=== PATIENT | male | born 1970 | race Caucasian/White ===

== ENCOUNTER 2020-05-17 09:20 | Emergency (ER) | payer BC, SELFPAY ==
[2020-05-17 09:32] VITALS: BP 129/81; PULSE 70; RESP 16; TEMP 36.7; O2SAT 98
--- NOTE | 2020-05-17 09:46 | ED.URI ---
HPI - URI/Sore Throat General Chief Complaint: Upper Respiratory Infection Stated Complaint: FEVER Time Seen by Provider: 05/17/20 09:35 Source: patient Mode of arrival: ambulatory Limitations: no limitations History of Present Illness HPI Narrative: Bobby Aleman is a 49 yo male with no PMH who comes here with fever and fatigue that started yesterday. He was exposed 2 weeks ago to someone that had Covid and a number of people that were there were positive. He started feeling poorly at work yesterday says he had a fever feeling tired, came here for evaluation and treatment. Patient uses tobacco via vape stopped smoking cigarettes 3-1/2 years ago, uses alcohol regularly Related Data Allergies Allergy/AdvReac Type Severity Reaction Status Date / Time No Known Allergies Allergy Unknown Verified 05/17/20 09:26 Review of Systems Review of Systems: Narrative: CONSTITUTIONAL: Has fever, chills, sweats. Fatigue EYES: Denies visual changes, redness, discharge. ENT: Denies rhinorrhea, congestion, sore throat, otalgia. CARDIOVASCULAR: Denies chest pain, palpitations, edema. RESPIRATORY: Denies dyspnea, wheezing, cough GASTROINTESTINAL: Denies abdominal pain, nausea, vomiting, diarrhea. GENITOURINARY: Denies dysuria, hematuria, abnormal discharge SKIN: Denies rash or itching. NEUROLOGIC: Denies numbness, or focal weakness. PSYCHIATRIC: Denies anxiety or depression. PMFSH Past Medical History Medical History No acute medical problems Family History Family History Other No acute medical problems Social History Social History Smoking status: Current every day smoker Tobacco type: e-cigarettes/vaping Smoking end date: 03/30/16 Additional smoking assessment comments: Stop smoking cigarettes 3/2 years ago but converted directly to vaping Alcohol intake: current Exam Narrative: Exam Narrative: GENERAL: This is a well-nourished, well-developed patient, in mild distress. HEAD: normocephalic, atraumatic. EYES: Sclera clear/white. Vision is grossly intact. EARS: External ears normal, auditory canals clear and without drainage, TMs normal without perforation. Hearing grossly intact. NOSE: External nose normal without nasal discharge, nares without redness, no rhinorrhea. THROAT: Mucous membranes moist, posterior pharynx erythema NECK: Neck supple, non-tender CARDIOVASCULAR: Regular rate and rhythm without murmurs, gallops, or rubs. RESPIRATORY: Clear to auscultation. Breath sounds equal bilaterally. No wheezes, rales, or rhonchi. GASTROINTESTINAL: Abdomen soft, non-tender, SKIN: warm, intact with no suspicious lesions or rash, good texture and turgor. NEURO: awake, alert, and oriented to person, place and time. There were no obvious focal neurologic abnormalities. Steady gait EXTREMITIES: Normal range of motion. BACK: Nontender without deformity Course Course Emergency Course: Patient comes to express care after 2 weeks ago exposure to Covid and yesterday developing cough and not feeling well fatigue Rapid Covid test done Covid test was positive Discussed with patient isolation for 10 days, cough medicine for cough, started on Zyrtec for postnasal drip; discussed reasons to return or to go to the ER Vital Signs Vital signs: Vital Signs Temperature 98.1 F 05/17/20 09:32 Pulse Rate 70 05/17/20 09:32 Respiratory Rate 16 05/17/20 09:32 Blood Pressure 129/81 05/17/20 09:32 Pulse Oximetry 98 05/17/20 09:32 Temperature 98.1 F 05/17/20 09:32 Pulse Rate 70 05/17/20 09:32 Respiratory Rate 16 05/17/20 09:32 Blood Pressure 129/81 05/17/20 09:32 Pulse Oximetry 98 05/17/20 09:32 MDM - URI/Sore Throat Differential Diagnosis Differential diagnosis: Likely upper respiratory infection, otitis media, sinusitis, viral infection, phary
== END 2020-05-17 10:00 | disposition home or self-care (01) ==
PROVIDERS: Emergency Provider Nurse Practitioner; PCP Family Medicine
DX: U07.1 COVID-19 (principal); F17.200 Nicotine dependence, unspecified, uncomplicated
CPT/HCPCS: 87426; 99213; C9803; G0463

== ENCOUNTER 2020-10-09 15:26 | Observation (INO) | payer BC, SELFPAY ==
[2020-10-09] VITALS (18 sets, daily range): BP systolic 116–172; BP diastolic 76–111; PULSE 51–80; RESP 12–20; TEMP 36.4–36.6; O2SAT 95–100; BMI 27.1
--- NOTE | ~2020-10-09 | XR_ITS ---
EXAMINATION: XR chest 2V EXAM DATE: 10/09/2020 16:05 INDICATION: Left-sided anterior chest pain. Hypertension. TECHNIQUE: Frontal and lateral projections of the chest obtained and reviewed. There is no prior vj dy for comparison. FINDINGS: The lungs are hyperinflated which can be seen with chronic obstructive pulmonary disease ( a clinical diagnosis of functional impairment), but is not diagnostic of it. Some scattered lung gran ulomas. The lungs are otherwise clear. There are no pleural effusions. The cardiomediastinal silhou ette is within normal limits. There is no pneumothorax suspected. The bones and soft tissues are un remarkable. IMPRESSION: 1. No acute cardiopulmonary findings. 2. Hyperinflation. Reviewed, dictated and finalized at location A.
--- NOTE | 2020-10-09 15:34 | ECG_ITS ---
Measurements Intervals [place] Rate: 69 P: 64 VA: 151 QRS: 70 QRSD: 116 T: 55 QT: 374 QTc: 403 Interpretive Statements SINUS RHYTHM INTRAVENTRICULAR CONDUCTION DELAY DELAYED PRECORDIAL R/S TRANSITION BORDERLINE ST ABNORMALITY- LATERAL LEADS BASELINE ARTIFACT- V1 BORDERLINE ECG Electronically Signed On 10-09-2020 17:30:13 CDT by Jeffery Varner D.O.
[2020-10-09 15:52] LABS: Basophils Percent Auto 0.6 % (0.2-1.2); Eosinophils Absolute Auto 0.1 K/mm3 (0-0.3); Eosinophils Percent Auto 1.6 % (0-4.4); Hemoglobin 15.9 g/dL (14.0-18.0); Immature Granulocyte Absolute 0.02 K/mm3 (0.00-0.031); Immature Granulocyte Percent A 0.3 % (0-0.5); Lymphocytes Absolute Auto 2.51 K/mm3 (0.9-3.2); Lymphocytes Percent Auto 37.1 % (18.3-44.2); Mean Corpuscular HGB Conc 33.8 g/dl (32-36); Mean Corpuscular Hemoglobin 29.7 pg (26-34); Mean Corpuscular Volume 87.7 fl (80-100); Mean Platelet Volume 9.4 fl (7.4-10.4); Monocytes Absolute Auto 0.5 K/mm3 (0.1-0.6); Monocytes Percent Auto 7.8 % (2.6-8.5); Neutrophils Absolute Auto 3.6 K/mm3 (1.3-6.7); Neutrophils Percent Auto 52.6 % (45.5-73.1); Platelet Count Result 241 k/mm3 (150-375); Red Blood Count 5.36 M/mm3 (4.6-6.20); Red Cell Distribution Width 12.6 % (11.5-14.5); White Blood Count 6.8 K/mm3 (4.5-10.0)
[2020-10-09 16:01] LABS: Anion Gap 11 mmol/L (8-16); Blood Urea Nitrogen 17 mg/dL (9-20); Calcium 9.7 mg/dL (8.4-10.2); Carbon Dioxide 25 mmol/L (22-30); Chloride 103 mmol/L (98-107); Estimated CRCL calculation 91 ml/min; Estimated Glomerular Filt Rate > 60; Glucose 98 mg/dL (75-110); Sodium 139 mmol/L (137-145)
[2020-10-09 16:04] LABS: Prothrombin Time 13.1 Seconds (11.1-14.7)
[2020-10-09 16:06] LABS: Partial Thromboplastin Time 33.9 SECONDS (22.3-36.8)
[2020-10-09 16:20] LABS: Troponin I < 0.012 ng/mL (0.000-0.034)
--- NOTE | 2020-10-09 17:55 | ED.GENADULT ---
HPI - General Adult General Chief complaint: Chest Pain Stated complaint: cp Time Seen by Provider: 10/09/20 17:44 Source: patient History of Present Illness HPI narrative: Patient is a 49 y/o male complaining of chest pain starting approximately 5 days ago. He describes his pain as sharp and rates it as 2/10. There is no known alleviating or exacerbating factor. He felt some pain radiation to left arm. His left arm feels numb. He has no SOB or cough. Related Data Home Medications Medication Instructions Recorded Confirmed No Home Medications 10/09/20 10/09/20 Allergies Allergy/AdvReac Type Severity Reaction Status Date / Time No Known Allergies Allergy Unknown Verified 05/17/20 09:26 Review of Systems Constitutional: Constitutional: Denies chills, Denies fever(s), Denies headache(s) and Denies weakness Eyes: Eyes: Denies blurry vision ENT: Denies headache(s) and Denies neck pain Cardiovascular: Cardiovascular: Reports chest pain and Denies dyspnea Respiratory: Respiratory: Denies cough and Denies dyspnea Gastrointestinal: Gastrointestinal: Denies abdominal pain, Denies diarrhea, Denies nausea and Denies vomiting Genitourinary: Genitourinary: Denies hematuria and Denies dysuria Musculoskeletal: Musculoskeletal: Denies back pain and Denies neck pain Neurologic: Denies headache(s), Reports paresthesias and Denies weakness PMFSH Past Medical History Medical History No acute medical problems Family History Family History Other No acute medical problems Social History Social History Smoking status: Current every day smoker Tobacco type: e-cigarettes/vaping Smoking end date: 03/30/16 Additional smoking assessment comments: Stop smoking cigarettes 3/2 years ago but converted directly to vaping Alcohol intake: current Exam Const: General: no acute distress and well developed Orientation/consciousness: oriented to person, oriented to place, oriented to time and patient oriented x3 HENMT: Head: normocephalic Ears: external ears normal General nose exam: Normal external nose present Eyes: General: appearance normal, both eyes and all related structures Conjunctivae: conjunctivae normal Neck: Neck: normal visual inspection and full ROM Chest: Chest palpation & inspection: normal inspection of the chest and no tenderness Resp: Effort & Inspection: normal respiratory effort Auscultation: clear to auscultation bilaterally Cardio: Rate: regular rate Rhythm: regular rhythm GI: GI Palp: No abdominal tenderness and Yes Soft to palpation Skin: General skin exam: normal color and turgor normal Neuro: General: oriented to person, oriented to place, oriented to time and patient oriented x3 Cognition (Neuro): normal cognition Extrem: General: normal to inspection, full ROM and no pedal edema Psych: Appearance: grossly normal Mental Status: mental status grossly normal Affect: normal affect Course Consultations Consultation #1: Discussed with Dr. Gaffney (cardiology), who agrees to admit. He also recommends ordering lexiscan Date: 10/09/20 Time: 21:58 Vital Signs Vital signs: Vital Signs Temperature 36.4 C 10/09/20 15:30 Pulse Rate 80 10/09/20 15:30 Respiratory Rate 14 10/09/20 15:30 Blood Pressure 171/108 H 10/09/20 15:30 Pulse Oximetry 98 10/09/20 15:30 Temperature 36.4 C 10/09/20 15:30 Pulse Rate 60 10/09/20 22:45 Respiratory Rate 18 10/09/20 22:45 Blood Pressure 128/86 10/09/20 22:45 Pulse Oximetry 99 10/09/20 22:45 Medical Decision Making Vital Signs Vital Signs: Vital Signs Temperature 36.4 C 10/09/20 15:30 Pulse Rate 80 10/09/20 15:30 Respiratory Rate 14 10/09/20 15:30 Blood Pressure 171/108 H 10/09/20 15:30 Pulse Oximetry 98 10/09/20 15:30 Temperature 3
[2020-10-09 19:12] LABS: Troponin I < 0.012 ng/mL (0.000-0.034)
[2020-10-09 20:49] LABS: D Dimer 0.26 ug/mL (<0.48)
[2020-10-09 22:30] LABS: Troponin I < 0.012 ng/mL (0.000-0.034)
--- NOTE | 2020-10-09 22:55 | ADMGEN ---
This patient, Bobby Aleman, was admitted to IMU Room 206-02 at 2250. Patient/family oriented to hospital policies and general routines including ID bracelet, bed and alarms, visiting hours, pain management, procedures, bathroom and other care routines, personal items, smoking policy, room service/diet, and visiting hours. Information on how to activate the Rapid Response Team has been discussed. Patient/Family are encouraged to report perceived risks to care and to ask questions if they do not understand what they are told or what they should do.
[2020-10-10 02:00] VITALS: PULSE 50
[2020-10-10 04:00] VITALS: BP 123/69; PULSE 53; PULSE 80; RESP 20; TEMP 36.6; O2SAT 97
[2020-10-10 06:06] VITALS: PULSE 56
[2020-10-10 07:50] VITALS: BP 120/70; PULSE 58; RESP 12; TEMP 37; O2SAT 98
--- NOTE | 2020-10-10 08:35 | PM.IMHP ---
H&P: HPI History of Present Illness Date/Time: 10/10/20 08:35 Chief Complaint: Chest pain Narrative: this is a 49-year-old man I am seeing this morning who was admitted to our service after being seen in the emergency room yesterday evening with some chest pain. He has no prior history or knowledge of any cardiac problems. He became concerned about his health when yesterday he started to have some central to left-sided chest discomfort in the sense of some heaviness in his left arm. Sometimes his left arm felt the sense of paresthesias but other times it just felt heavy and somewhat painful. He never felt the symptoms to be severe in nature there was no associated shortness of breath nausea vomiting or diaphoresis. The symptoms came on when he was basically at rest. He was at work when it began and was not exerting himself. Because of these symptoms he took 6 aspirin tablets and spoke to coworkers for a while. One of them drove him to the emergency room later in the afternoon to have an evaluation. His electrocardiogram emergency room was normal. His troponin levels were normal. The symptoms were improved in the ER without any specific treatment but not completely resolved. Through the night he has been in the IMU in no significant distress but it should be noted that this sense of pain in left precordium has never completely left. He appears to be totally comfortable this morning but still reports symptoms of about 1/2 on a 10 scale. 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 He does not have any symptoms of orthopnea PND or edema he has not been experiencing any palpitations and has never had a syncopal episode. The patient's troponin levels following admission remained completely normal. He there is no family history of premature coronary disease. He does state that he is a gentleman that normally has low normal blood pressure readings and a recently upon seeing his physician that his blood pressure has been more elevated but the decision has not been made to place him on any medical anti hypertensive therapy. Review of Systems Constitutional: Constitutional: Reports no additional constitutional complaints Eyes: Eyes: Reports no additional eye complaints ENT: Reports system reviewed and no additional complaints, except as documented Cardiovascular: Cardiovascular: Reports as per HPI Respiratory: Respiratory: Reports no additional respiratory complaints Gastrointestinal: Gastrointestinal: Reports no additional gastrointestinal complaints Musculoskeletal: Musculoskeletal: Reports no additional musculoskeletal complaints Integumentary/Breasts: Skin/Breast: Reports system reviewed and no additional complaints, except as docu Neurologic: Reports system reviewed and no additional complaints, except as documented Psychiatric: Psychiatric: Reports no additional psychiatric complaints PMF Past Medical History Medical History No acute medical problems Family History Family History (Updated 10/09/20 @ 23:05 by Mary Cortes RN) Mother Bladder cancer History of urostomy Smoker Father Heart failure Smoker Other No acute medical problems Social History Social History Smoking status: Current every day smoker Tobacco type: e-cigarettes/vaping Additional smoking assessment comments: Stop smoking cigarettes 3/2 years ago but converted directly to vaping Alcohol intake: current Substance use: never Substance use type: does not use Living arrangements: with family Gender identity (if verbalized by the patient): Male Spiritual care concerns: No Meds Home Medic
--- NOTE | 2020-10-10 08:42 | PM.DS ---
DS: Admitting Diagnosis Admitting Diagnosis Admitting Diagnosis: chest pain DS: Discharge Diagnosis Discharge Diagnosis (1) Chest pain: Qualifiers: Chest pain type: unspecified Qualified Code(s): R07.9 - Chest pain, unspecified Code(s): R07.9 - Chest pain, unspecified Status: Acute DS: Summary Hospital Course Reason for hospitalization: chest pain Hospital Course: this is a 49-year-old gentleman without prior history of cardiac problems and really a paucity of general medical problems as well. He began to experience symptoms of left-sided chest discomfort which was a dull aching sensation with some sense of paresthesias in his left arm yesterday while he was at work. Symptoms do not occur in exertional fashion. He took a series of aspirin tablets at work and then a co-worker brought to the hospital later in the afternoon for evaluation. He was seen in the emergency department and did not appear to have any evidence of [place]/acute coronary syndrome. His electrocardiogram was normal and his troponin level was also negative. He was admitted to the hospital overnight for observation. He actually has very mild but persistent discomfort since it began yesterday morning. clinically he appeared to be totally comfortable in the IMU. He was not in any sort of distress when he was a providing the history. His serial troponin levels remained completely unremarkable. 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 The patient had no physical exam abnormalities and obviously acute coronary syndrome was ruled out. He is being discharged this morning for follow-up with his PCP. He did mention that his high blood pressure readings recently in his physician's office and here in the hospital were somewhat more elevated than he is used to seeing. We did not make the decision to initiate medical antihypertensive therapy while he was in the hospital overnight for observation. Status at Discharge Functional status at discharge: independent ambulation Time Spent with Patient Time attestation: Total time spent providing and/or coordinating discharge services: Time spent: Less than 30 minutes Exam Const: General: comfortable Limitations: no limitations HENMT: Mouth: Yes moist mucous membranes Eyes: Sclera: sclerae normal Pupils: Equal, round and reactive pupils present Neck: Neck: supple and no JVD Thyroid: thyroid normal Carotids: bruit Other: Normal carotid pulses bilaterally Resp: Effort & Inspection: normal respiratory effort Auscultation: clear to auscultation bilaterally Cardio: Other: unremarkable exam a nondisplaced PMI no murmur no gallop no rub GI: GI Palp: Yes Soft to palpation Auscultation: normal bowel sounds Extrem: General: normal to inspection DS: Data Data Completed and Pending Labs on day of discharge: Labs from last 24 hours 10/09/20 10/09/20 10/09/20 21:52 18:42 15:44 WBC RBC Hgb Hct MCV MCH MCHC RDW Plt Count MPV Immature Gran % (Auto) Neut % (Auto) Lymph % (Auto) Christian % (Auto) Eos % (Auto) Baso % (Auto) Lymph # (Auto) Christian # (Auto) Eos # (Auto) Baso # (Auto) Abs Immat Gran (auto) Absolute Neuts (auto) Absolute Nucleated RBC Nucleated RBC % PT INR APTT D-Dimer 0.26 Sodium Potassium Chloride Carbon Dioxide Anion Gap BUN Creatinine Estim Creat Clear Calc Estimated GFR Glucose Calcium Troponin I < 0.012 < 0.012 10/09/20 10/09/20 10/09/20 15:44 15:44 15:44 WBC 6.8 RBC 5.36 Hgb 15.9 Hct 47.0 MCV 87.7 MCH 29.7 MCHC 33.8 RDW 12.6 Plt Count 241 MPV 9.4 Immature Gran % (Auto) 0.3 Neut % (Auto) 52.6 Lymph % (Auto) 37.1 Christian % (Auto) 7.8 Eos % (Auto) 1.6 Baso
[2020-10-10] MEDS: ASPIRIN 81 MG CHEWABLE TABLET 324 MG PO (08:47)
== END 2020-10-10 09:49 | disposition home or self-care (01) ==
LOC: ANHED 18:02 → ANHIMU 23:13
PROVIDERS: Emergency Medicine; Admitting Provider Internal Medicine Cardiovascular Disease; Emergency Provider Emergency Medicine; PCP Family Medicine; Visit Provider Specialist
DX: R07.9 Chest pain, unspecified (principal); F17.290 Nicotine dependence, other tobacco product, uncomplicated
CPT/HCPCS: 36415; 71046; 80048; 84484; 85025; 85380; 85610; 85730; 93005; 99285; A9270; G0378